=== PATIENT | male | born 1965 | race African-American/Black ===

== ENCOUNTER 2019-08-29 17:18 | Inpatient (IN) | payer MEDICARE ==
[~2019-08-29] VITALS: Ht 167.6 cm; Wt 62.7 kg
[2019-08-29] MEDS ORDERED: NORV100T PO (17:33)
[2019-08-29] MEDS ORDERED: METF10004 PO (17:33)
[2019-08-29] MEDS ORDERED: LAMI1TAB PO (17:33)
[2019-08-29] MEDS ORDERED: VALS1TAB66 PO (17:33)
[2019-08-29 17:43] LABS: BASO % 0.3 % (0.0-1.0); EOS # 0.1 10^3/uL (0.0-0.5); EOS % 1.7 % (0.0-3.0); HEMATOCRIT 37.1 % (42.0-52.0); HEMOGLOBIN 13.2 g/dl (13.5-17.5); LYMPH # 2.2 10^3/uL (1.5-5.0); LYMPH % 38.4 % (24.0-44.0); MEAN CORPUSCULAR HEMOGLOBIN 40.2 pg (27.0-33.0); MEAN CORPUSCULAR HGB CONC 35.6 g/dl (32.0-36.5); MEAN CORPUSCULAR VOLUME 113.1 fl (80.0-96.0); MONO # 0.5 10^3/uL (0.0-0.8); MONO % 7.8 % (0.0-5.0); NEUTROPHILS % 51.6 % (36.0-66.0); PLATELET COUNT, AUTOMATED 169 10^3/uL (150-450); RED BLOOD COUNT 3.28 10^6/uL (4.30-6.10); WHITE BLOOD COUNT 5.8 10^3/uL (4.0-10.0)
[2019-08-29] MEDS ORDERED: NITROGLYCERIN 0.4 MG SUBL TABLET As Ordered ONE (17:54)
[2019-08-29] MEDS ORDERED: ASPIRIN 81 MG CHEW TABLET PO ONE (18:00)
[2019-08-29] MEDS: NITROGLYCERIN 0.4 MG SUBL TABLET SL PRN ×3 (18:01→18:31)
--- NOTE | 2019-08-29 18:11 | REP ---
Clinical: Chest pain. Comparison: None. Findings: Subtle blunting to the left costophrenic angle may represent small pleural reaction. No focal consolidation. No pneumothorax. Mediastinum and cardiac silhouette normal. Impression: Subtle blunting to the left costophrenic angle may represent small pleural reaction. Electronically Signed by Christopher Coon MD 08/29/2019 06:03 P
[2019-08-29 18:18] LABS: BLOOD UREA NITROGEN 12 MG/DL (7-18); CALCIUM LEVEL 8.6 MG/DL (8.5-10.1); CARBON DIOXIDE LEVEL 32 MEQ/L (21-32); CHLORIDE LEVEL 108 MEQ/L (98-107); CK-MB VALUE MASS 2.2 NG/ML (<3.6); CPK CREATINE PHOSPHOKINASE 130 U/L (39-308); CREATININE FOR GFR 0.94 MG/DL (0.70-1.30); GLOMERULAR FILTRATION RATE > 60.0 (>56); GLUCOSE, FASTING 91 MG/DL (70-100); MB/CK RELATIVE INDEX 1.69 (< OR =4); POTASSIUM SERUM 3.8 MEQ/L (3.5-5.1); SODIUM LEVEL 142 MEQ/L (136-145); TROPONIN I < 0.02 NG/ML (< 0.10)
[2019-08-29] MEDS ORDERED: ACETAMINOPHEN TAB 650MG DOSE (2X325MG) PO ONE (18:30)
[2019-08-29] MEDS ORDERED: ISOVUE-370 76% 100ML VIAL (Q9967) As Ordered ONE (18:45)
[2019-08-29 18:55] LABS: ALBUMIN 3.4 GM/DL (3.2-5.2); ALT/SGPT 38 U/L (12-78); BILIRUBIN,DIRECT 0.1 MG/DL (0.0-0.2); BILIRUBIN,TOTAL 0.2 MG/DL (0.2-1.0); LIPASE 169 U/L (73-393); TOTAL PROTEIN 6.6 GM/DL (6.4-8.2)
--- NOTE | 2019-08-29 19:49 | REPVR ---
PROCEDURE INFORMATION: Exam: CT Angiography Chest With Contrast Exam date and time: 08/29/2019 6:49 PM Age: 54 years old Clinical indication: Other: Pleuritic chest pain TECHNIQUE: Imaging protocol: Computed tomographic angiography of the chest with intravenous contrast. 3D rendering: MIP and/or 3D reconstructed images were created by the technologist. Radiation optimization: All CT scans at this facility use at least one of these dose optimization techniques: automated exposure control; mA and/or kV adjustment per patient size (includes targeted exams where dose is matched to clinical indication); or iterative reconstruction. Contrast material: ISOVUE 370; Contrast volume: 75 ml; Contrast route: IV; COMPARISON: CR PORTABLE CHEST X-RAY 08/29/2019 5:43 PM FINDINGS: Pulmonary arteries: No focal pulmonary artery filling defect to suggest acute pulmonary embolus. Aorta: No thoracic aortic aneurysm or dissection. Lungs: Pulmonary vascular/interstitial pattern does not suggest active pulmonary edema. No suspicious lung mass or air space process. No central endobronchial lesion. Mild bilateral apical bullous changes are present in the lungs. Pleural space: No pleural effusion or pneumothorax. Heart: No overt cardiac enlargement or abnormal volume of pericardial fluid. Lymph nodes: No enlarged mediastinal lymph nodes. Bones/joints: No acute osseous abnormality. Chronic AVN changes of the humeral heads. Other findings: Limited visualization of upper abdomen shows no concerning finding. IMPRESSION: 1. No evidence of acute pulmonary embolus. 2. No other acute or concerning focal intrathoracic abnormality. 3. Chronic bilateral humeral head AVN. Electronically signed by: Guanaco Asher On 08/29/2019 19:48:53 PM
--- NOTE | 2019-08-29 20:34 | ECGEPIP ---
[facility] - ED Test Date: 2019-08-29 Pat Name: WEST FOX Department: Room: - Gender: Male Juvenile Court Judge: marina brandt : 1965 Requested By: GRETCHEN Silva Order Number: [id number] Reading MD: Alexandria Lamas Measurements Intervals Wade Rate: 67 P: 74 [place]: 133 QRS: 18 QRSD: 88 T: 36 QT: 370 QTc: 392 Interpretive Statements SINUS RHYTHM NONSPECIFIC T-WAVE ABNORMALITY DELAYED R PROGRESSION NO PRIOR Electronically Signed on 08-29-2019 20:34:02 EST by Alexandria Lamas
[2019-08-29] MEDS ORDERED: LABETALOL HCL 100 MG/20 ML VIAL IV STA (21:12)
[2019-08-29] MEDS ORDERED: GLUCAGON FOR INJ 1 MG VIAL (J1610) SC PRN (22:00)
[2019-08-29] MEDS ORDERED: GLUCOSE 4 GM CHEW TABLET PO PRN (22:00)
[2019-08-29] MEDS ORDERED: hydrALAZINE INJ 20 MG/ML VIAL IV PRN (22:00)
[2019-08-29] MEDS ORDERED: DEXTROSE 50% 50 ML SYRINGE IV PRN (22:00)
[2019-08-29] MEDS ORDERED: atenoloL 50 MG TAB PO ONE (22:00)
[2019-08-29] MEDS ORDERED: VALSARTAN 80 MG TAB (DIOVAN) PO ONE (22:00)
[2019-08-29] MEDS: NITROGLYCERIN 2% OINT 1 GM *U/D* PKT TOP SCH (22:00)
[2019-08-29] MEDS: HumaLOG INSULIN (NovoLOG) PER UNIT SC SCH (22:49)
[2019-08-29 23:03] VITALS: BP 179/79
[2019-08-29 23:37] VITALS: BP 194/92
--- NOTE | 2019-08-29 23:59 | REPVR ---
PROCEDURE INFORMATION: Exam: CT Head Without Contrast Exam date and time: 08/29/2019 10:57 PM Age: 54 years old Clinical indication: Pain; Headache not specified; Additional info: Headache HTN urgency R/O ich TECHNIQUE: Imaging protocol: Computed tomography of the head without contrast. Radiation optimization: All CT scans at this facility use at least one of these dose optimization techniques: automated exposure control; mA and/or kV adjustment per patient size (includes targeted exams where dose is matched to clinical indication); or iterative reconstruction. COMPARISON: No relevant prior studies available. FINDINGS: Brain: Moderate volume loss. No acute intracranial hemorrhage, midline shift or mass effect. Mild decreased attenuation of the supratentorial white matter is likely secondary to chronic microvascular ischemia. Ventricles: No hydrocephalus. Bones/joints: Unremarkable. No acute fracture. Sinuses: Mild paranasal sinus disease. Mastoid air cells: Visualized mastoid air cells are well aerated. Soft tissues: Unremarkable. IMPRESSION: No acute intracranial abnormality. Electronically signed by: Hood Bhatt On 08/29/2019 23:59:17 PM
[2019-08-30] VITALS (13 sets, daily range): BP systolic 139–198; BP diastolic 67–88
--- NOTE | 2019-08-30 00:24 | HPE ---
DATE OF ADMISSION: 08/29/2019 CHIEF COMPLAINT: Chest pain. Headache. HISTORY OF PRESENTING ILLNESS: This is a 54-year-old male with a history of HIV, diagnosed in the , coronary artery disease, myocardial infarction (MD), CVA, was in his usual state of health until this morning at 5:00 a.m. when he woke up with complaints of dull substernal chest pain and heart racing. The patient stayed in bed and tried to sleep it off, did not take any nitroglycerin or aspirin. He had recently moved here from [place] to live with his daughter and his son-in-law because his was "stressing me out." The patient's atenolol, which he had taken for years, was recently changed to Valsartan by his new primary care physician, Dr. Molina, in [place], who had seen him once. The patient then complained of some shortness of breath without diaphoresis. No nausea or vomiting. Chest pain lasted throughout the day today. Accompanied with a throbbing headache in the forehead. No Tylenol or Advil taken at home. He then presented to the emergency room around 4:00 p.m. when his daughter returned from going to the dentist, and he was found to be in hypertensive urgency with presenting blood pressure of 215/98. CT chest to rule out dissection showed no focal intrathoracic abnormality. EKG had no acute ST-T wave changes. The patient had labetalol given 10 mg intravenously with blood pressure decreasing to 163/89. The patient has been compliant with his medications,. The patient otherwise denies any cough, paroxysmal nocturnal dyspnea (PND), orthopnea. No history of heart failure or kidney disease due to hypertension. The patient denies any visual changes, diplopia, blurred vision, double vision. No nausea or vomiting. PAST MEDICAL HISTORY: HIV diagnosed in , viral load undetectable. CVA July of 2019. Coronary artery disease. MD. Hypertension. 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 Diabetes. PAST SURGICAL HISTORY: Bilateral ORIF due to osteonecrosis of the hips from chronic steroid use. Right hip replaced at [facility] 9 years ago. Left hip replaced in [place] 6 years ago. SOCIAL HISTORY: The patient previously worked as a cook, had spent time in correction. Patient used to smoke cigarettes, stopped 2 years ago. Smoked marijuana, quit 5 months ago. No alcohol use. Previously had heavy alcohol abuse. Currently lives with his daughter in [place], Malika Ozuna, who is the healthcare proxy. FULL CODE. HOME MEDICATIONS: - metformin 500 mg daily - lamivudine-zidovudine one tablet twice a day - Norvir 100 mg daily - valsartan 80 mg daily ALLERGIES: To TRAMADOL and TRAZODONE. REVIEW OF SYSTEMS: Per history of the present illness, 12-point system otherwise negative. PHYSICAL EXAM: Temperature 98.1, pulse 63, respiratory rate 18, blood pressure 216/93, 100% on room air. Generally, patient is awake, alert, oriented times three. Anicteric sclerae, no jaundice. No jugular venous distention (JVD). No thyromegaly. No cervical lymphadenopathy. No tonsillar exudate. Lungs are clear to auscultation. No wheezing, rales or rhonchi. Heart: S1, S2, sinus rhythm. Abdomen is soft, nontender, nondistended. Positive bowel sounds. Extremities: No cyanosis, clubbing or pitting edema. Postsurgical changes bilateral hips. Bilateral upper and lower extremities 5/5 motor strength. No paresthesias. No dysmetria on ujeqqw-[id number] testing. Speech is fluent, tongue is midline. No pronator drift. Negative Babinski bilaterally. EKG 08/29/2019: Sinus rhythm, ventricular rate 67, nonspecific T-wave abnormality, delayed R progression. White count 5.8, hemoglobin 13, hematocrit 37, platelet count 169. Sodium 142, potassium 3.8, chloride 108, bicarbonate 32, BUN 12, creatinine 0.94, glucose of 91, calcium 8.6, total bilirubin 0.2, direct bilirubin 0.1, AST 21, ALT 38, alkaline phosphatase 79, total CK 130, MB fraction 2.2, relative index 1.69, troponin less than 0.02, total protein 6.6, albumin 3.4, lipase 169. IMAGING STUDIES: Chest x-ray: Subtle blunting of the left costophrenic angle may represent small pleural reaction. No pneumothorax. Mediastinum and cardiac silhouette are normal. CT angio 08/29/2019: No evidence of acute pulmonary embolism. No other acute or concerning focal intrathoracic abnormality. Chronic bilateral humeral head avascular necrosis. Multiple apical bullous changes are present in the lungs. ASSESSMENT AND PLAN: A 54-year-old male with a history of coronary artery disease, myocardial infarction, CVA, HIV diagnosed in the , with undetectable viral load per the patient, recently moved to the [facility] to live with his daughter and son-in-law, presented with acute onset of headache, which was described as throbbing, chest pain described as dull and squeezing starting at 5:00 a.m. and palpitations. The patient was found to be in hypertensive urgency. CT of the chest was negative for dissection or pulmonary embolism. EKG: No acute coronary syndrome. Troponins unremarkable. The patient will be admitted for the following issues: 1. Hypertensive urgency. The patient's resting heart rate is 61. He has been given atenolol 100 mg times one. He is currently on valsartan 80 mg daily, nitroglycerin topically every 4 hours, hydralazine IV every 6 hours, telemetry monitoring. CT of the head pending to evaluate for intracranial hemorrhage due to hypertensive urgency, complaints of headache. No focal neurologic findings on physical examination. 2. HIV. Check CD4 count, viral load in the morning. Continue home medications, Norvir and lamivudine-zidovudine. Outpatient followup with infectious disease specialist, Dr. Marielle Clemente. Primary care physician appointment, per the patient, is scheduled for September 12, 2019, with [facility]. 3. Type 2 diabetes. Check A1c. Discontinue metformin in light of recent contrast given today for CT chest. Insulin sliding scale. Check A1c and lipid panel. 4. History of CVA. Obtain records from primary care physician in [place]. check CT head r/o ICH with c/o headache and htn urgency. check lipid panel in AM. 5. History of polysubstance abuse. quit ETOH, cigarette use, and marijuana use. Deep vein thrombosis (DVT) prophylaxis. Compression stockings. MTDD
[2019-08-30 01:32] LABS: CK-MB VALUE MASS 2.1 NG/ML (<3.6); CPK CREATINE PHOSPHOKINASE 98 U/L (39-308); MB/CK RELATIVE INDEX 2.14 (< OR =4); TROPONIN I < 0.02 NG/ML (< 0.10)
[2019-08-30] MEDS ORDERED: hydrALAZINE INJ 20 MG/ML VIAL IV PRN (01:45)
[2019-08-30] MEDS: NITROGLYCERIN 2% OINT 1 GM *U/D* PKT TOP SCH ×7 (02:13→21:05)
[2019-08-30] MEDS ORDERED: FLUBLOK(EGG FREE)(QUAD)INFLUENZA VACC 0.5ML SYRINGE (90682)18YRS&OLDER IM SCH (02:30)
[2019-08-30] MEDS ORDERED: amLODIPine 10 MG TAB PO ONE (04:30)
[2019-08-30 05:19] LABS: BASO % 0.3 % (0.0-1.0); EOS # 0.1 10^3/uL (0.0-0.5); EOS % 1.7 % (0.0-3.0); HEMATOCRIT 35.8 % (42.0-52.0); HEMOGLOBIN 12.6 g/dl (13.5-17.5); LYMPH # 1.9 10^3/uL (1.5-5.0); LYMPH % 30.6 % (24.0-44.0); MEAN CORPUSCULAR HEMOGLOBIN 39.4 pg (27.0-33.0); MEAN CORPUSCULAR HGB CONC 35.2 g/dl (32.0-36.5); MEAN CORPUSCULAR VOLUME 111.9 fl (80.0-96.0); MONO # 0.5 10^3/uL (0.0-0.8); MONO % 7.6 % (0.0-5.0); NEUTROPHILS # 3.8 10^3/uL (1.5-8.5); NEUTROPHILS % 59.6 % (36.0-66.0); PLATELET COUNT, AUTOMATED 155 10^3/uL (150-450); WHITE BLOOD COUNT 6.3 10^3/uL (4.0-10.0)
[2019-08-30 05:31] LABS: BLOOD UREA NITROGEN 13 MG/DL (7-18); CALCIUM LEVEL 8.8 MG/DL (8.5-10.1); CARBON DIOXIDE LEVEL 27 MEQ/L (21-32); CHLORIDE LEVEL 109 MEQ/L (98-107); CREATININE FOR GFR 0.78 MG/DL (0.70-1.30); GLOMERULAR FILTRATION RATE > 60.0 (>56); GLUCOSE, FASTING 79 MG/DL (70-100); POTASSIUM SERUM 3.8 MEQ/L (3.5-5.1); SODIUM LEVEL 141 MEQ/L (136-145)
[2019-08-30 05:37] LABS: HEMOGLOBIN A1c 4.7 %
[2019-08-30 05:43] LABS: CHOLESTEROL LEVEL 149 MG/DL (<200); CHOLESTEROL RISK RATIO 2.614 (<5); CK-MB VALUE MASS 1.7 NG/ML (<3.6); CPK CREATINE PHOSPHOKINASE 105 U/L (39-308); HDL CHOLESTEROL 57 MG/DL (>40); LDL CHOLESTEROL 69 MG/DL (<100); MB/CK RELATIVE INDEX 1.62 (< OR =4); NON-HDL-C 92 MG/DL; TRIGLYCERIDES LEVEL 113 MG/DL (<150); TROPONIN I < 0.02 NG/ML (< 0.10)
[2019-08-30] MEDS: HumaLOG INSULIN (NovoLOG) PER UNIT SC SCH ×4 (07:04→20:59)
[2019-08-30] MEDS ORDERED: VALSARTAN 80 MG TAB (DIOVAN) PO SCH (09:00)
[2019-08-30] MEDS: atenoloL 50 MG TAB PO SCH (09:49)
[2019-08-30] MEDS: VALSARTAN 80 MG TAB (DIOVAN) PO SCH (09:50)
[2019-08-30] MEDS: RITONAVIR 100 MG PO SCH (14:46)
[2019-08-30] MEDS: ZIDOVUDINE PO SCH ×2 (14:47→20:56)
[2019-08-30] MEDS: LAMIVUDINE PO SCH ×2 (14:47→20:56)
[2019-08-31] VITALS: BP 136/63
[2019-08-31] MEDS: NITROGLYCERIN 2% OINT 1 GM *U/D* PKT TOP SCH ×3 (02:00→10:37)
[2019-08-31 03:55] VITALS: BP 121/60
[2019-08-31 04:53] LABS: BASO % 0.6 % (0.0-1.0); EOS # 0.2 10^3/uL (0.0-0.5); EOS % 2.7 % (0.0-3.0); HEMOGLOBIN 12.3 g/dl (13.5-17.5); LYMPH # 2.2 10^3/uL (1.5-5.0); LYMPH % 34.8 % (24.0-44.0); MEAN CORPUSCULAR HEMOGLOBIN 39.7 pg (27.0-33.0); MEAN CORPUSCULAR HGB CONC 35.1 g/dl (32.0-36.5); MEAN CORPUSCULAR VOLUME 112.9 fl (80.0-96.0); MONO # 0.6 10^3/uL (0.0-0.8); MONO % 8.9 % (0.0-5.0); NEUTROPHILS # 3.3 10^3/uL (1.5-8.5); NEUTROPHILS % 52.7 % (36.0-66.0); PLATELET COUNT, AUTOMATED 161 10^3/uL (150-450); WHITE BLOOD COUNT 6.2 10^3/uL (4.0-10.0)
[2019-08-31 05:13] LABS: BLOOD UREA NITROGEN 18 MG/DL (7-18); CALCIUM LEVEL 8.2 MG/DL (8.5-10.1); CARBON DIOXIDE LEVEL 27 MEQ/L (21-32); CHLORIDE LEVEL 112 MEQ/L (98-107); CREATININE FOR GFR 0.94 MG/DL (0.70-1.30); GLOMERULAR FILTRATION RATE > 60.0 (>56); GLUCOSE, FASTING 105 MG/DL (70-100); SODIUM LEVEL 144 MEQ/L (136-145)
[2019-08-31 06:29] VITALS: BP 175/84
[2019-08-31 06:44] VITALS: BP 138/75
[2019-08-31 07:45] VITALS: BP 154/76
[2019-08-31] MEDS: HumaLOG INSULIN (NovoLOG) PER UNIT SC SCH (08:39)
[2019-08-31] MEDS: VALSARTAN 80 MG TAB (DIOVAN) PO SCH (08:40)
[2019-08-31] MEDS: atenoloL 50 MG TAB PO SCH (08:40)
[2019-08-31] MEDS: LAMIVUDINE PO SCH (08:41)
[2019-08-31] MEDS: ZIDOVUDINE PO SCH (08:41)
[2019-08-31] MEDS: RITONAVIR 100 MG PO SCH (08:42)
[2019-08-31] MEDS ORDERED: amLODIPine 10 MG TAB PO SCH (09:00)
--- NOTE | 2019-08-31 09:45 | DS.PDOC ---
Discharge Summary General Date of Admission Aug 29, 2019 at 21:53 Date of Discharge 08/31/19 Discharge Summary PROCEDURES PERFORMED DURING STAY: none ADMITTING DIAGNOSES: 1. hypertensive urgency DISCHARGE DIAGNOSES: 1. hypertensive urgency COMPLICATIONS/CHIEF COMPLAINT: Hypertensive Urgency. HISTORY OF PRESENT ILLNESS: Please refer to dated 08/29/19 for complete HPI. HOSPITAL COURSE: Patient was admitted and treated for the following conditions: 1. hypertensive urgency - admitted to MICU. - started on valsartan, atenolol, amlodipine, hydralazine IV. - patient blood pressure improved significantly on PO medication. - patient downgraded to PCU, is now stable for discharge to home. - patient will be discharged on atenolol, amlodipine, valsartan. - PCP follow up at [facility] on 09/12/19. 2. HIV - patient continued on norvir, lamivudine-zidovudine. - outpatient follow up with infectious disease, Marielle Clemente. - PCP follow up with [facility] scheduled for 09/12/19. 3. DM2 - continue metformin. DISCHARGE MEDICATIONS: Please see below. ALLERGIES: Please see below. PHYSICAL EXAMINATION ON DISCHARGE: VITAL SIGNS: Please see below. GENERAL: AAO x 3, NAD. HEENT: NCAT, anicteric sclera, PERRLA/EOMI NECK: supple, no JVD, no thyromegaly CARDIOVASCULAR EXAMINATION: NS1S2, regular, no murmurs/rubs RESPIRATORY EXAMINATION: CTA b/l, no wheezing, rales, rhonchi. ABDOMINAL EXAMINATION: NT/ND, positive bowel sounds, no masses EXTREMITIES: no cyanosis, clubbing, edema SKIN: warm, no rashes, NEUROLOGICAL EXAMINATION: AAO x 3, no motor/sensory deficits, PSYCHIATRIC EXAMINATION: calm, cooperative, normal affectis. LABORATORY DATA: Please see below. IMAGING: Chest x-ray: Subtle blunting of the left costophrenic angle may represent small pleural reaction. No pneumothorax. Mediastinum and cardiac silhouette are normal. CT angio 08/29/2019: No evidence of acute pulmonary embolism. No other acute or concerning focal intrathoracic abnormality. Chronic bilateral humeral head avascular necrosis. Multiple apical bullous changes are present in the lungs. PROGNOSIS: good ACTIVITY: [As tolerated]. DIET: low sodium DISCHARGE PLAN: discharge to home DISPOSITION: home DISCHARGE INSTRUCTIONS: 1. PCP follow up at [facility] on 09/12/19 2. Outpatient follow up with infectious disease, Marielle Clemente ITEMS TO FOLLOWUP ON ON OUTPATIENT: 1. none DISCHARGE CONDITION: [Stable]. TIME SPENT ON DISCHARGE: Greater than 30 minutes. Vital Signs/I&Os Vital Signs Date Time Temp Pulse Resp B/P (MAP) Pulse Ox O2 Delivery O2 Flow Rate FiO2 08/31/19 08:40 154/76 08/31/19 06:44 56 08/31/19 06:29 17 99 Room Air 08/31/19 03:55 98.2 I&O- Last 24 Hours up to 6 AM 08/31/19 05:59 Intake Total 860 ml Output Total 1025 ml Balance -165 ml Laboratory Data Labs 24H Laboratory Tests 2 08/30/19 11:52: Bedside Glucose (Misc Panel) 182H 08/30/19 16:38: Bedside Glucose (Misc Panel) 100 08/30/19 20:58: Bedside Glucose (Misc Panel) 147H 08/31/19 04:27: Immature Granulocyte % (Auto) 0.3, Neutrophils (%) (Auto) 52.7, Lymphocytes (%) (Auto) 34.8, Monocytes (%) (Auto) 8.9H, Eosinophils (%) (Auto) 2.7, Basophils (%) (Auto) 0.6, Neutrophils # (Auto) 3.3, Lymphocytes # (Auto) 2.2, Monocytes # (Auto) 0.6, Eosinophils # (Auto) 0.2, Basophils # (Auto) 0.0, Nucleated Red Blood Cells % (auto) 0.0, Anion Gap 5L, Glomerular Filtration Rate > 60.0, Calcium Level 8.2L CBC/BMP Laboratory Tests 08/31/19 04:27 FSBS Laboratory Tests Test 08/30/19 11:52 08/30/19 16:38 08/30/19 20:58 Range/Units Bedside Glucose (Misc Panel) 182 100 147 70-105 MG/DL Discharge Medications Scheduled Lamivudine/Zidovudine (Lamivudine-Zidovudine Tablet) 1 Each Tablet, 1 TAB PO BID, (Reported) Metformin HCl (Metformin HCl) 1,000 Mg Tablet, 500 MG PO DAILY, (Reported) Ritonavir (Norvir) 100 Mg Tablet, 100 MG PO DAILY, (Reported) Valsartan (Valsartan) 80 Mg Tablet, 80 MG PO DAILY, (Reported) Allergies Coded Allergies: tramadol (Verified Allergy, Intermediate, Hives, 08/29/19) trazodone (Verified Adverse Reaction, Severe, Priaprism, 08/29/19) SYLVIE ELISE MD Aug 31, 2019 09:45
[2019-08-31] MEDS ORDERED: AMLO10TA5 PO (10:07)
[2019-08-31] MEDS ORDERED: ATEN50TA2 PO (10:07)
--- NOTE | 2019-08-31 10:26 | ECHO ---
DATE OF PROCEDURE: 08/30/2019 AGE: 54 REFERRING PROVIDER: Dr. Burt REASON FOR STUDY: Chest pain. LOCATION: Room 3206 2-D MEASUREMENTS: IVS 1.1 cm LV 3.5 cm LVPW 1.1 cm LA 2.9 cm Aorta 2.6 cm IVC 1.3 cm DOPPLER MEASUREMENTS: Peak velocity across the aortic valve 1.9 meters per second Peak velocity across the LVOT 1.2 meters per second Mitral E 0.85, mitral A 0.9 with a ratio of 0.9. 2-D COMMENTS: 1. Normal left ventricular size, wall thickness, and normal global left ventricular systolic function. The estimated ventricular systolic ejection fraction is 65-70%. 2. Normal left atrium. Normal right atrium and right ventricle. The atrial septum appeared to be normal without evidence of defect or shunt. 3. Trace pericardial effusion was noted, no evidence of cardiac tamponade. 4. Normal aortic root. 5. Mildly calcified aortic valve with minimally restricted leaflet motion. Mildly calcified mitral annulus with normal anterior mitral leaflet motion. Normal tricuspid valve and pulmonic valve. The proximal pulmonary artery branches were not well visualized. 6. The inferior vena cava was normal in size, central venous pressure is most likely normal. Doppler: It detects trace aortic radiation, trace mitral regurgitation. Abnormal relaxation pattern was noted across the mitral valve leaflets, as well as the mitral annulus consistent with features of grade 1 left ventricular diastolic dysfunction. IMPRESSION: 1. Normal global left ventricular systolic function with a hyperdynamic left ventricle. There are some features of left ventricular diastolic dysfunction manifested by abnormal relaxation, grade 1. 2. Aortic valve sclerosis with trace aortic regurgitation and trivial aortic stenosis. 3. Mitral annulus calcification with trace mitral regurgitation. 4. Trace pericardial effusion, no evidence of cardiac tamponade. [facility]
[2019-08-31 10:37] VITALS: BP 156/76
--- NOTE | 2019-08-31 21:39 | ECGEPIP ---
[facility] Test Date: 2019-08-30 Pat Name: WEST FOX JR Department: Room: [place] [address] Gender: Male Neurology Epilepsy Physician: GABRIEL : 1965 Requested By: SHELBIE Góemz Order Number: [id number] Reading MD: Darwin Johnson Measurements Intervals Atkins Rate: 64 P: 70 NE: 151 QRS: 12 QRSD: 86 T: 29 QT: 402 QTc: 418 Interpretive Statements SINUS RHYTHM Within normal limits. Electronically Signed on 08-31-2019 21:38:47 EST by Darwin Johnson
[2019-09-02 00:07] LABS: HIV-1 RNA PCR QUANT 2 LC550285 <20 copies/mL (.)
== END 2019-08-31 12:33 | disposition home or self-care (01) | DRG 305 ==
LOC: M ED 17:18 → M ED INP 21:53 → ENRESERV 22:14 → M ICU 22:56
PROVIDERS: ADMIT General Practice; ATTEND Internal Medicine
DX: I16.0 Hypertensive urgency (principal); Z21 Asymptomatic human immunodeficiency virus [HIV] infection status; I25.10 Atherosclerotic heart disease of native coronary artery without angina pectoris; I25.2 Old myocardial infarction; E11.9 Type 2 diabetes mellitus without complications; I10 Essential (primary) hypertension; Z96.643 Presence of artificial hip joint, bilateral; Z87.891 Personal history of nicotine dependence; Z86.73 Personal history of transient ischemic attack (TIA), and cerebral infarction without residual deficits; Z79.84 Long term (current) use of oral hypoglycemic drugs; Z79.899 Other long term (current) drug therapy; Z88.5 Allergy status to narcotic agent; Z88.8 Allergy status to other drugs, medicaments and biological substances

== ENCOUNTER → 2019-09-04 | Outpatient (REF) | payer MEDICARE ==
[~2019-09-04] MED LIST: AMLO10TA5 PO; ATEN50TA2 PO; LAMI1TAB PO; METF10004 PO; NORV100T PO; VALS1TAB66 PO
[2019-09-04 18:54] LABS: ALBUMIN 3.9 GM/DL (3.2-5.2); ALT/SGPT 35 U/L (12-78); BILIRUBIN,TOTAL 2.7 MG/DL (0.2-1.0); BLOOD UREA NITROGEN 12 MG/DL (7-18); CALCIUM LEVEL 9.3 MG/DL (8.5-10.1); CARBON DIOXIDE LEVEL 31 MEQ/L (21-32); CHLORIDE LEVEL 106 MEQ/L (98-107); CHOLESTEROL LEVEL 214 MG/DL (<200); CHOLESTEROL RISK RATIO 3.194 (<5); CREATININE FOR GFR 1.03 MG/DL (0.70-1.30); GLOMERULAR FILTRATION RATE > 60.0 (>56); GLUCOSE, FASTING 77 MG/DL (70-100); HDL CHOLESTEROL 67 MG/DL (>40); LDL CHOLESTEROL 118 MG/DL (<100); NON-HDL-C 147 MG/DL; POTASSIUM SERUM 4.8 MEQ/L (3.5-5.1); SODIUM LEVEL 140 MEQ/L (136-145); TOTAL PROTEIN 7.4 GM/DL (6.4-8.2); TRIGLYCERIDES LEVEL 147 MG/DL (<150)
[2019-09-04 18:55] LABS: FREE T4 0.92 NG/DL (0.76-1.46)
[2019-09-04 19:34] LABS: HEMOGLOBIN A1c 4.7 %
== END ==
LOC: M LAB REF 16:37
PROVIDERS: ATTEND Nurse Practitioner Family
DX: Z13.9 Encounter for screening, unspecified (principal); I10 Essential (primary) hypertension; E11.69 Type 2 diabetes mellitus with other specified complication

== ENCOUNTER 2019-09-25 12:27 | Inpatient (IN) | payer MEDICARE ==
[~2019-09-25] VITALS: Ht 167.6 cm; Wt 64.1 kg
[2019-09-25 13:12] LABS: HEMATOCRIT 40.6 % (42.0-52.0); HEMOGLOBIN 14.4 g/dl (13.5-17.5); MEAN CORPUSCULAR HEMOGLOBIN 39.1 pg (27.0-33.0); MEAN CORPUSCULAR HGB CONC 35.5 g/dl (32.0-36.5); MEAN CORPUSCULAR VOLUME 110.3 fl (80.0-96.0); PLATELET COUNT, AUTOMATED 169 10^3/uL (150-450); RED BLOOD COUNT 3.68 10^6/uL (4.30-6.10); WHITE BLOOD COUNT 5.6 10^3/uL (4.0-10.0)
[2019-09-25 13:32] LABS: AMPHETAMINES LEVEL URINE NEGATIVE (NEGATIVE); BARBITURATES URINE NEGATIVE (NEGATIVE); BENZODIAZEPINES URINE NEGATIVE (NEGATIVE); CANNABINOIDS URINE NEGATIVE (NEGATIVE); COCAINE METABOLITE URINE NEGATIVE (NEGATIVE); METHADONE URINE NEGATIVE (NEGATIVE); OPIATES URINE NEGATIVE (NEGATIVE); PHENCYCLIDINE URINE NEGATIVE (NEGATIVE)
[2019-09-25 13:41] LABS: ACETAMINOPHEN LEVEL < 2.0 UG/ML (10.0-30.0); ALBUMIN 3.9 GM/DL (3.2-5.2); ALT/SGPT 61 U/L (12-78); BILIRUBIN,DIRECT 0.2 MG/DL (0.0-0.2); BILIRUBIN,TOTAL 0.7 MG/DL (0.2-1.0); BLOOD UREA NITROGEN 26 MG/DL (7-18); CALCIUM LEVEL 9.4 MG/DL (8.5-10.1); CARBON DIOXIDE LEVEL 27 MEQ/L (21-32); CHLORIDE LEVEL 108 MEQ/L (98-107); CREATININE FOR GFR 1.45 MG/DL (0.70-1.30); ETHYL ALCOHOL (ETHANOL) < 0.003 % (0.000-0.010); GLOMERULAR FILTRATION RATE > 60.0 (>56); GLUCOSE, FASTING 93 MG/DL (70-100); POTASSIUM SERUM 4.1 MEQ/L (3.5-5.1); SALICYLATE LEVEL < 1.7 MG/DL (5.0-30.0); SODIUM LEVEL 140 MEQ/L (136-145); TOTAL PROTEIN 7.7 GM/DL (6.4-8.2)
[2019-09-25] MEDS ORDERED: [UNRECOGNIZED DRUG - CODE] PO (14:43)
[2019-09-25] MEDS ORDERED: ATEN100T PO (14:43)
[2019-09-25] MEDS ORDERED: AMLO10TA5 PO (14:43)
[2019-09-25] MEDS ORDERED: ONE1TAB2 PO (14:44)
[2019-09-25] MEDS ORDERED: MOM 30ML SUSPENSION UDC PO PRN (17:00)
[2019-09-25] MEDS ORDERED: traZODone 50 MG TAB PO PRN (17:00)
[2019-09-25] MEDS ORDERED: MAALOX 30 ML SUSP *UDC PO PRN (17:00)
[2019-09-25] MEDS ORDERED: ACETAMINOPHEN TAB 650MG DOSE (2X325MG) PO PRN (17:00)
[2019-09-26 06:22] VITALS: BP 142/78
[2019-09-26] MEDS ORDERED: metFORMIN (GLUCOPHAGE) 1000 MG TABLET PO SCH (08:00)
[2019-09-26] MEDS ORDERED: atenoloL 50 MG TAB PO SCH (09:00)
[2019-09-26] MEDS ORDERED: amLODIPine 10 MG TAB PO SCH (09:00)
[2019-09-26] MEDS: MULTIVITAMINS/MINERALS THERAP 1 TAB PO SCH (09:27)
[2019-09-26] MEDS: SERTRALINE HCL 50 MG TAB PO SCH (09:27)
--- NOTE | 2019-09-26 09:41 | MHHPEPDOC ---
[facility] History & Physical History and Physical DATE OF ADMISSION: Sep 25, 2019 at 16:48 LEGAL STATUS AT ADMISSION: . CHIEF COMPLAINT: . HISTORY OF PRESENT ILLNESS: Patient is a 54-year-old male, who PSYCHIATRIC REVIEW OF SYSTEMS: Affective: . Anxiety: . Trauma: . Psychosis: . Personality: . PAST PSYCHIATRIC HISTORY: Prior Psychiatric Disorder: . Outpatient Treatment: . Suicidal/Self injurious: [Denies]. Psychotropic Medication History: . ALLERGIES: Please see below. FAMILY PSYCHIATRIC HISTORY: [Denies]. SOCIAL HISTORY: Early Relations/development: . Sibling order: . Paternal relationships: . Education: . Occupational: . Legal: . Marital: . Economic: . Supports: . Abuse/trauma: . SUBSTANCE ABUSE HISTORY: . PAST MEDICAL/SURGICAL HISTORY: [None]. VITAL SIGNS: Please see below. MENTAL STATUS EXAMINATION: General appearance: Patient is a -year old male, who is . Speech: . Thought processes: . Thought content: . Abstract reasoning and computation: . Description of associations: . Description of abnormal or psychotic thoughts: . Judgment: . Insight: . Orientation: . Recent and remote memory: . Attention span and concentration: . Fund of knowledge: . Mood: "." Affect: . DIAGNOSES: 1. . 2. . 3. . ASSESSMENT: PROBLEM LIST: 1. . 2. . 3. . INITIAL TREATMENT PLAN: 1. Patient was admitted on a . 2. Complete history was obtained. 3. With patients permission, family will be contacted and database will be expanded. 4. Patients medication regimen will be reviewed and changed accordingly. 5. Patient will be provided with protected environment. 6. Patient will be treated with individual, group, and milieu therapies. 7. Patient will receive supportive psych-education. 8. Discharge planning will commence immediately. 9. Outpatient follow-up treatment will be strongly recommended. 10. The initial treatment plan will focus initially on: * Depression. * Risk for suicide. * Substance abuse. ESTIMATED LENGTH OF STAY: - DAYS. TIME SPENT COUNSELING AND COORDINATING INITIAL CARE: minutes. Vital Signs Vital Signs Date Time Temp Pulse Resp B/P (MAP) Pulse Ox O2 Delivery O2 Flow Rate FiO2 09/26/19 09:28 62 09/26/19 09:27 139/71 09/26/19 08:47 Room Air 09/26/19 06:22 98.7 18 09/25/19 16:44 99 Laboratory Data 24H Labs Laboratory Tests 2 09/25/19 12:52: Urine Opiates Screen NEGATIVE, Urine Methadone Screen NEGATIVE, Urine Galina iturates Screen NEGATIVE, Urine Phencyclidine Screen NEGATIVE, Urine Amphetamines Screen NEGATIVE, Urine Benzodiazepines Screen NEGATIVE, Urine Cocaine Metabolite Screen NEGATIVE, Urine Cannabinoids Screen NEGATIVE 09/25/19 12:55: Nucleated Red Blood Cells % (auto) 0.0, Anion Gap 5L, Glomerular Filtration Rate > 60.0, Calcium Level 9.4, Total Bilirubin 0.7, Direct Bilirubin 0.2, Aspartate Amino Transf (AST/SGOT) 29, Alanine Aminotransferase (ALT/SGPT) 61, Alkaline Phosphatase 106, Total Protein 7.7, Albumin 3.9, Albumin/Globulin Ratio 1.03, Thyroid Stimulating Hormone (TSH) 3.980H, Salicylates Level < 1.7L, Acetaminophen Level < 2.0L, Ethyl Alcohol Level < 0.003 CBC/BMP Laboratory Tests 09/25/19 12:55 Medications Scheduled Amlodipine Besylate (Amlodipine Besylate) 10 Mg Tablet, 10 MG PO DAILY, (Report ed) Atazanavir Sulfate (Reyataz) 300 Mg Capsule, 300 MG PO DAILY, (Reported) Atenolol (Atenolol) 100 Mg Tablet, 100 MG PO DAILY, (Reported) Lamivudine/Zidovudine (Lamivudine-Zidovudine Tablet) 1 Each Tablet, 1 TAB PO BID, (Reported) Multivit-Minerals/FA/Lycopene (One Daily Men's Health Tablet) 1 Each Tablet, 1 TAB PO DAILY, (Reported) Ritonavir (Norvir) 100 Mg Tablet, 100 MG PO DAILY, (Reported) Scheduled PRN Metformin HCl (Metformin HCl) 1,000 Mg Tablet, 500 MG PO DAILY PRN for high blood sugar, (Reported) patient states takes prn Allergies Coded Allergies: tramadol (Verified Allergy, Intermediate, Hives, 08/29/19) trazodone (Verified Adverse Reaction, Severe, Priaprism, 08/29/19) LAKSHMI PERRIN DO Sep 26, 2019 09:41
[2019-09-26] MEDS ORDERED: metFORMIN (GLUCOPHAGE) 1000 MG TABLET PO PRN (10:45)
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
[2019-09-26] MEDS: IBUPROFEN 800 MG TAB PO PRN (12:16)
--- NOTE | 2019-09-26 12:27 | REP ---
Urinary tract sonogram: History: Elevated creatinine Comparison: No comparison study. Findings: Scanning at the level of the urinary bladder shows no abnormality. Renal cortical echogenicity pattern is normal bilaterally and contours are smooth. There is no evidence of hydronephrosis, cyst, mass, or calculus in either kidney. The right kidney measures 9.1 x 4.9 x 5.2 cm. Left renal dimensions are and 10.2 x 4.9 x 5.0 cm. Impression: Normal urinary tract sonography. Electronically Signed by Daniel Gallagher MD 09/26/2019 12:17 P
[2019-09-26 16:00] VITALS: BP 130/73
[2019-09-26 21:23] LABS: APPEARANCE, URINE CLEAR (CLEAR); BACTERIA, URINE AUTO NEGATIVE (NEGATIVE); BILIRUBIN, URINE AUTO NEGATIVE (NEGATIVE); BLOOD, URINE BLOOD NEGATIVE (NEGATIVE); COLOR, URINE YELLOW (YELLOW); GLUCOSE, URINE (UA) AUTO NEGATIVE (NEGATIVE); KETONE, URINE AUTO NEGATIVE (NEGATIVE); LEUKOCYTE ESTERASE, URINE AUTO NEGATIVE (NEGATIVE); MUCUS, URINE SMALL (NEGATIVE); NITRITE, URINE AUTO NEGATIVE (NEGATIVE); PROTEIN, URINE AUTO NEGATIVE (NEGATIVE); RBC, URINE AUTO 1 /HPF (0-3); SQUAMOUS EPITHELIAL CELL UR AU 0 /HPF (0-6); UROBILINOGEN, URINE AUTO 0.2 mg/dL (0.0-2.0); WBC, URINE AUTO 0 /HPF (0-3)
[2019-09-27] MEDS: OLANZapine ORAL DISINTEGRATING TAB 5MG PO PRN ×2 (01:58→21:04)
[2019-09-27 06:22] VITALS: BP 136/75
[2019-09-27] MEDS ORDERED: FLUBLOK(EGG FREE)(QUAD)INFLUENZA VACC 0.5ML SYRINGE (90682)18YRS&OLDER IM ONE (09:00)
[2019-09-27] MEDS: amLODIPine 10 MG TAB PO SCH (09:05)
[2019-09-27] MEDS: MULTIVITAMINS/MINERALS THERAP 1 TAB PO SCH (09:06)
[2019-09-27] MEDS: SERTRALINE HCL 50 MG TAB PO SCH (09:06)
[2019-09-27] MEDS: atenoloL 50 MG TAB PO SCH (09:07)
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
--- NOTE | 2019-09-27 13:04 | IPNPDOC ---
Text Note Date of Service The patient was seen on 09/27/19. NOTE JOSE. Renal ultrasound negative for hydronephrosis, mass, cyst or stone. UA normal. Likely secondary to dehydration in the face of worsening mental state. Push fluid/water, reassess BMP tomorrow AMENDMENT Repeat bmp is WNL Medicine will sign of at this time. Please re-consult as needed. VS,Fishbone, I+O VS, Fishbone, I+O Vital Signs Date Time Temp Pulse Resp B/P (MAP) Pulse Ox O2 Delivery O2 Flow Rate FiO2 09/27/19 09:07 60 144/70 09/27/19 07:50 Room Air 09/27/19 06:22 97.8 16 09/25/19 16:44 99 MARIAM HASSAN PA-C Sep 27, 2019 13:04
[2019-09-27 16:00] VITALS: BP 130/60
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
[2019-09-28 06:24] VITALS: BP 143/74
[2019-09-28 07:47] LABS: BLOOD UREA NITROGEN 18 MG/DL (7-18); CALCIUM LEVEL 8.8 MG/DL (8.5-10.1); CARBON DIOXIDE LEVEL 29 MEQ/L (21-32); CHLORIDE LEVEL 110 MEQ/L (98-107); CREATININE FOR GFR 1.19 MG/DL (0.70-1.30); GLOMERULAR FILTRATION RATE > 60.0 (>56); GLUCOSE, FASTING 86 MG/DL (70-100); POTASSIUM SERUM 4.1 MEQ/L (3.5-5.1); SODIUM LEVEL 143 MEQ/L (136-145)
[2019-09-28] MEDS: amLODIPine 10 MG TAB PO SCH (09:29)
[2019-09-28] MEDS: SERTRALINE HCL 50 MG TAB PO SCH (09:30)
[2019-09-28] MEDS: IBUPROFEN 800 MG TAB PO PRN (09:30)
[2019-09-28] MEDS: MULTIVITAMINS/MINERALS THERAP 1 TAB PO SCH (09:30)
[2019-09-28] MEDS: atenoloL 50 MG TAB PO SCH (09:31)
[2019-09-28 16:00] VITALS: BP 145/76
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
[2019-09-29 06:24] VITALS: BP 165/79
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
[2019-09-29 08:43] VITALS: BP 135/64
[2019-09-29] MEDS: SERTRALINE HCL 50 MG TAB PO SCH (08:43)
[2019-09-29] MEDS: atenoloL 50 MG TAB PO SCH (08:43)
[2019-09-29] MEDS: MULTIVITAMINS/MINERALS THERAP 1 TAB PO SCH (08:43)
[2019-09-29] MEDS: amLODIPine 10 MG TAB PO SCH (08:44)
[2019-09-29] MEDS ORDERED: RITONAVIR 100 MG PO SCH ×2 (09:00→21:00)
[2019-09-29] MEDS ORDERED: LAMIVUDINE PO SCH (09:00)
[2019-09-29] MEDS ORDERED: ATAZANAVIR 300 MG PO SCH (09:00)
[2019-09-29] MEDS ORDERED: ZIDOVUDINE PO SCH (09:00)
[2019-09-29 10:11] LABS: HEPATITIS B SURFACE ANTIBODY POSITIVE (POSITIVE); HEPATITIS B SURFACE ANTIGEN NEGATIVE (NEGATIVE)
--- NOTE | 2019-09-29 10:38 | MHIPNPDOC ---
[facility] Progress Note Progress Note DATE OF SERVICE: 09/29/19 HISTORY: . VITAL SIGNS: See below. NEW TEST RESULTS: . CURRENT MEDICATIONS: See below. MENTAL STATUS EXAMINATION: Patient is a -year old male, who is . Speech: Is . Language skills are . Thought processes including: . Thought content: . Abstract reasoning, and computation: . Description of associ ations: . Description of abnormal or psychotic thoughts: . Judgment: . Insight: [very limited, good, fair. poor]. Orientation: . Recent and remote memory: . Attention span and concentration: . Language: . Fund of knowledge: . Mood: . Affect: . DIAGNOSES: 1. . 2. . 3. . ASSESSMENT: MANAGEMENT PLAN: . TIME SPENT: minutes. Vital Signs Vital Signs Date Time Temp Pulse Resp B/P (MAP) Pulse Ox O2 Delivery O2 Flow Rate FiO2 09/29/19 08:44 58 09/29/19 08:43 135/64 09/29/19 06:24 97.9 16 09/28/19 08:32 Room Air 09/25/19 16:44 99 Laboratory Data 24H Labs Laboratory Tests 2 09/28/19 16:54: Bedside Glucose (Misc Panel) 164H 09/29/19 06:24: Bedside Glucose (Misc Panel) 89 09/29/19 06:27: 09/29/19 06:34: Hepatitis B Surface Antigen NEGATIVE, Hepatitis B Surface Antibody POSITIVE, Hepatitis C Antibody Index 0.0 Current Medications Current Medications Medications (Trade) Dose Ordered Sig/Rashel Route PRN Reason Start Time Stop Time Status Last Admin Dose Admin Acetaminophen (Tylenol Tab) 650 mg Q6HP PRN PO HEADACHE or DISCOMFORT 09/25/19 17:00 09/26/19 09:27 Al Hydrox/Mg Hydrox/Simethicone (Mylanta) 30 ml Q4HP PRN PO HEARTBURN/INDIGESTION 09/25/19 17:00 Amlodipine Besylate (Norvasc) 10 mg DAILY PO 09/26/19 09:00 09/26/19 11:00 DC 09/26/19 09:27 Amlodipine Besylate (Norvasc) 10 mg DAILY PO 09/27/19 09:00 09/29/19 08:44 Atenolol (Tenormin) 100 mg DAILY PO 09/26/19 09:00 09/26/19 11:00 DC 09/26/19 09:28 Atenolol (Tenormin) 100 mg DAILY PO 09/27/19 09:00 09/29/19 08:43 Home Med (Med Rec Complete!) ASDIRECTED XX 09/25/19 14:45 09/25/19 14:46 DC Ibuprofen (Advil) 800 mg Q6HP PRN PO MODERATE PAIN (PS 5-7) 09/26/19 10:45 09/28/19 09:30 Magnesium Hydroxide (Milk Of Magnesia) 30 ml DAILYPRN PRN PO CONSTIPATION 09/25/19 17:00 Metformin HCl (Glucophage) 500 mg DAILY PRN PO high blood sugar 09/26/19 10:45 Metformin HCl (Glucophage) 1,000 mg DAILY@0800 PO 09/26/19 08:00 Cancel Miscellaneous (Unresolved Patient Own Med Order) SEE LABEL COMMENTS DAILY XX 09/26/19 09:00 Multivitamins (Theragram-M) 1 tab DAILY PO 09/26/19 09:00 09/29/19 08:43 Olanzapine (ZyPREXA ZYDIS) 5 mg Q4HP PRN PO AGITATION 09/25/19 17:00 09/27/19 21:04 Patient Own Medication (Patient'S Own Med) Atazanavir 300mg CAPS... DAILY PO 09/26/19 09:00 UNV Patient Own Medication (Patient'S Own Med) Lamivudine/ Zidovudine 1,50/... BID PO 09/25/19 21:00 UNV Patient Own Medication (Patient'S Own Med) Ritonavir 100mg TAKE 1 BY MO... DAILY PO 09/26/19 09:00 UNV Sertraline HCl (Zoloft) 50 mg DAILY PO 09/26/19 09:00 09/29/19 08:43 Trazodone HCl (Desyrel) 50 mg QHSP PRN PO INSOMNIA 09/25/19 17:00 UNV Allergies Coded Allergies: tramadol (Verified Allergy, Intermediate, Hives, 08/29/19) trazodone (Verified Adverse Reaction, Severe, Priaprism, 08/29/19) LAKSHMI PERRIN DO Sep 29, 2019 10:38
--- NOTE | 2019-09-29 11:53 | MHDSPDOC ---
[facility] Discharge Summary Discharge Summary DATE OF ADMISSION: Sep 25, 2019 at 16:48 DATE OF DISCHARGE: 09/29/19 Discharge Stas Dominguez MRN: N/[id number] Date of : N/A Date of Service: 09/29/2019 Diagnoses Unspecified depressive disorder Concern for malingering versus fabrication Alcohol, tobacco, other drug use disorder, in remission History of Present Illness The patient is a 54-year-old man who recently moved to the area from [place] to live with his daughter, has a reported history of depression, however, presents after being kicked out of his daughter's home due to "not liking it there." The patient reported that otherwise he had had HIV since the 80s and had poor relationships with most of his family members. Consultants Involved Hospitalist/PCP screening Infectious disease: Due to lack of his home medications for HIV, recommended continuing once was able. Treatment and Progress On The Unit The patient was admitted to the inpatient unit and tried on sertraline 50 mg with positive results at times. The patient didn't attend groups and was generally uninterested in treatment, it became clear during his admission that he generally was malingering for housing, as he was not welcome back at his daughter's home. After some time of observation and conversion to voluntary status, I discussed with the patient about the risks of continue to stay on the inpatient unit due to the bowling virus outbreak. Patient was amenable to making a safe plan and the suicidality rapidly resolved further increasing my suspicion of malingering. He had no behavioral problems on the unit and was generally friendly Discharge Assessment 54-year-old man with likely manufactured depression versus adjustment disorder is treated with low dose SSRI. The patient at the time of discharge did not meet criteria for involuntary admission/extension due to having a normal mental status exam, fair insight into the situation, They are engaged in the discharge process, as well as being friendly and amenable in behavioral control and havent been engaging in any observed concerning behavior or ideation recently. They decline voluntary extens ion/admission at this time and must be discharged in good jt, as Im unable to make a case for holding the patient against their will. They may have historical risk factors of admissions and other interactions with psychiatry however, those are not modifiable from a clinical perspective. The patient will need to be discharged in good jt. Mental Status Examination General: Well dressed with good hygiene Speech: Spontaneous and fluid Thought processes: Linear and logical MSK: Smooth and coordinated gait, no signs of tremors or involuntary orofacial movements Thought content: Future orientated Abstract reasoning, and computation: Intact Description of associations: Intact Description of abnormal or psychotic thoughts: Denies any suicidal or homicidal ideation. Denies any auditory or visual hallucinations. Does not appear to be responding to internal stimuli. Does not appear to be endorsing any bizarre or paranoid ideation. Judgment: Chronically limited Insight: Chronically limited Orientation: Alert and orientated 3 Cognition: Grossly normal Recent and remote memory: Intact Attention span and concentration: Intact Fund of knowledge: Adequate Mood: "okay" Affect: Euthymic with a full range Follow Up The social work team worked during the predischarge meeting in order to evaluate for further issues of lethality address them fully before discharge. They worked on safety planning with the patient's family members in order to ensure that the patient will have a safe and effective discharge. Time Spent The amount of time spent in the coordination of care for this patient was approximately 40 minutes. Wednesday Vital Signs/I&Os Vital Signs Date Time Temp Pulse Resp B/P (MAP) Pulse Ox O2 Delivery O2 Flow Rate FiO2 09/29/19 08:44 58 09/29/19 08:43 135/64 09/29/19 06:24 97.9 16 09/28/19 08:32 Room Air 09/25/19 16:44 99 Laboratory Data Labs 24H Laboratory Tests 2 09/28/19 16:54: Bedside Glucose (Misc Panel) 164H 09/29/19 06:24: Bedside Glucose (Misc Panel) 89 09/29/19 06:27: 09/29/19 06:34: Hepatitis B Surface Antigen NEGATIVE, Hepatitis B Surface Antibody POSITIVE, Hepatitis C Antibody Index 0.0 Medications Scheduled Amlodipine Besylate (Amlodipine Besylate) 10 Mg Tablet, 10 MG PO DAILY, (Reported) Atazanavir Sulfate (Reyataz) 300 Mg Capsule, 300 MG PO DAILY, (Reported) Atenolol (Atenolol) 100 Mg Tablet, 100 MG PO DAILY, (Reported) Lamivudine/Zidovudine (Lamivudine-Zidovudine Tablet) 1 Each Tablet, 1 TAB PO BID, (Reported) Multivit-Minerals/FA/Lycopene (One Daily Men's Health Tablet) 1 Each Tablet, 1 TAB PO DAILY, (Reported) Ritonavir (Norvir) 100 Mg Tablet, 100 MG PO DAILY, (Reported) Sertraline HCl (Sertraline HCl) 50 Mg Tablet, 50 MG PO DAILY for mood for 7 Days, #7 Scheduled PRN Metformin HCl (Metformin HCl) 1,000 Mg Tablet, 500 MG PO DAILY PRN for high blood sugar, (Reported) PT TAKES PRN IF BS OVER 150 Allergies Coded Allergies: tramadol (Verified Allergy, Intermediate, Hives, 08/29/19) trazodone (Verified Adverse Reaction, Severe, Priaprism, 08/29/19) LAKSHMI PERRIN DO Sep 29, 2019 11:53
[2019-09-29] MEDS ORDERED: SERT50TA29 PO (12:10)
[2019-09-30 14:11] LABS: %CD4 Pos Lymphs 17.8 % (30.8-58.5); ABS Eosinophils 0.1 x10E3/uL (0.0-0.4); ABS Lymphs 2.5 x10E3/uL (0.7-3.1); ABS Monocytes 0.4 x10E3/uL (0.1-0.9); ABS Neutophils 2.4 x10E3/uL (1.4-7.0); Abs CD4 Helper 445 /uL (359-1519); Abs CD8 Suppres 1675 /uL (109-897); CD4/CD8 Ratio 0.27 (0.92-3.72); Eosinophils 2 % (Not Estab.); HCT 37.8 % (37.5-51.0); HEPATITIS A IgG TOTAL Positive (Negative); HEPATITIS B CORE ANTIBODY IGG Negative (Negative); HGB 13.4 g/dL (13.0-17.7); Immature Grans 1 % (Not Estab.); Lymphocytes 45 % (Not Estab.); MCH 39.3 pg (26.6-33.0); MCHC 35.4 g/dL (31.5-35.7); MCV 111 fL (79-97); Monocytes 8 % (Not Estab.); Neutrophils 43 % (Not Estab.); Platelets 159 x10E3/uL (150-450); RBC 3.41 x10E6/uL (4.14-5.80); RDW 14.1 % (11.6-15.4); WBC 5.4 x10E3/uL (3.4-10.8)
== END 2019-09-29 13:35 | disposition home or self-care (01) | DRG 881 ==
LOC: M ED 12:27 → M ED INP 16:48 → M PSY 17:51
PROVIDERS: ADMIT Psychiatry & Neurology Psychiatry; ATTEND Psychiatry & Neurology Addiction Medicine
DX: F32.9 Major depressive disorder, single episode, unspecified (principal); I63.59 Cerebral infarction due to unspecified occlusion or stenosis of other cerebral artery; B20 Human immunodeficiency virus [HIV] disease; M87.019 Idiopathic aseptic necrosis of unspecified shoulder; N17.9 Acute kidney failure, unspecified; I10 Essential (primary) hypertension; Z79.899 Other long term (current) drug therapy; Z88.8 Allergy status to other drugs, medicaments and biological substances; Z87.891 Personal history of nicotine dependence; Z96.643 Presence of artificial hip joint, bilateral; Z91.5 Personal history of self-harm; I25.2 Old myocardial infarction; E11.9 Type 2 diabetes mellitus without complications; Z79.84 Long term (current) use of oral hypoglycemic drugs; Z76.5 Malingerer [conscious simulation]; E86.0 Dehydration; Z63.5 Disruption of family by separation and divorce; F10.11 Alcohol abuse, in remission; F12.11 Cannabis abuse, in remission

== ENCOUNTER 2019-09-29 15:48 | Inpatient (IN) | payer MEDICARE, MEDICAID ==
[~2019-09-29] VITALS: Ht 167.6 cm; Wt 64.1 kg
[~2019-09-29 15:48] MED LIST changes: +ATEN100T PO; +ONE1TAB2 PO; +SERT50TA29 PO; +[UNRECOGNIZED DRUG - CODE] PO
[2019-09-29 17:21] LABS: HEMATOCRIT 38.1 % (42.0-52.0); HEMOGLOBIN 13.5 g/dl (13.5-17.5); MEAN CORPUSCULAR HEMOGLOBIN 39.1 pg (27.0-33.0); MEAN CORPUSCULAR HGB CONC 35.4 g/dl (32.0-36.5); MEAN CORPUSCULAR VOLUME 110.4 fl (80.0-96.0); PLATELET COUNT, AUTOMATED 147 10^3/uL (150-450); RED BLOOD COUNT 3.45 10^6/uL (4.30-6.10)
[2019-09-29 17:55] LABS: AMPHETAMINES LEVEL URINE NEGATIVE (NEGATIVE); BARBITURATES URINE NEGATIVE (NEGATIVE); BENZODIAZEPINES URINE NEGATIVE (NEGATIVE); CANNABINOIDS URINE NEGATIVE (NEGATIVE); COCAINE METABOLITE URINE NEGATIVE (NEGATIVE); METHADONE URINE NEGATIVE (NEGATIVE); OPIATES URINE NEGATIVE (NEGATIVE); PHENCYCLIDINE URINE NEGATIVE (NEGATIVE)
[2019-09-29 18:06] LABS: ACETAMINOPHEN LEVEL < 2.0 UG/ML (10.0-30.0); ALBUMIN 3.8 GM/DL (3.2-5.2); ALT/SGPT 46 U/L (12-78); BILIRUBIN,DIRECT 0.2 MG/DL (0.0-0.2); BILIRUBIN,TOTAL 0.8 MG/DL (0.2-1.0); BLOOD UREA NITROGEN 17 MG/DL (7-18); CALCIUM LEVEL 8.9 MG/DL (8.5-10.1); CARBON DIOXIDE LEVEL 31 MEQ/L (21-32); CHLORIDE LEVEL 107 MEQ/L (98-107); CREATININE FOR GFR 1.17 MG/DL (0.70-1.30); ETHYL ALCOHOL (ETHANOL) 0.006 % (0.000-0.010); GLOMERULAR FILTRATION RATE > 60.0 (>56); GLUCOSE, FASTING 105 MG/DL (70-100); SALICYLATE LEVEL < 1.7 MG/DL (5.0-30.0); SODIUM LEVEL 141 MEQ/L (136-145); TOTAL PROTEIN 7.3 GM/DL (6.4-8.2)
[2019-09-29] MEDS ORDERED: traZODone 50 MG TAB PO PRN (19:00)
[2019-09-29] MEDS ORDERED: MAALOX 30 ML SUSP *UDC PO PRN (19:00)
[2019-09-29] MEDS ORDERED: ACETAMINOPHEN TAB 650MG DOSE (2X325MG) PO PRN (19:00)
[2019-09-29] MEDS ORDERED: hydrOXYzine 25 MG TAB PO PRN (19:00)
[2019-09-29] MEDS ORDERED: metFORMIN (GLUCOPHAGE) 1000 MG TABLET PO PRN (19:00)
[2019-09-29] MEDS ORDERED: MOM 30ML SUSPENSION UDC PO PRN (19:00)
[2019-09-29 20:33] VITALS: BP 130/60
[2019-09-29] MEDS ORDERED: DEXTROSE 50% 50 ML SYRINGE IV PRN (21:00)
[2019-09-29] MEDS ORDERED: GLUCOSE 4 GM CHEW TABLET PO PRN (21:00)
[2019-09-29] MEDS ORDERED: GLUCAGON FOR INJ 1 MG VIAL (J1610) SC PRN (21:00)
[2019-09-29] MEDS ORDERED: HumaLOG INSULIN (NovoLOG) PER UNIT SC SCH (21:00)
[2019-09-29] MEDS: LAMIVUDINE PO SCH (21:23)
[2019-09-29] MEDS: ZIDOVUDINE PO SCH (21:23)
[2019-09-30 06:12] VITALS: BP 144/74
[2019-09-30] MEDS: HumaLOG INSULIN (NovoLOG) PER UNIT SC SCH ×2 (06:34→11:47)
[2019-09-30] MEDS ORDERED: metFORMIN (GLUCOPHAGE) 500 MG TAB PO SCH (08:00)
[2019-09-30] MEDS: LAMIVUDINE PO SCH (08:37)
[2019-09-30] MEDS: ZIDOVUDINE PO SCH (08:37)
[2019-09-30] MEDS ORDERED: atenoloL 50 MG TAB PO SCH (09:00)
[2019-09-30] MEDS ORDERED: ATAZANAVIR 300 MG PO SCH (09:00)
[2019-09-30] MEDS ORDERED: RITONAVIR 100 MG PO SCH (09:00)
[2019-09-30] MEDS ORDERED: SERTRALINE HCL 50 MG TAB PO SCH (09:00)
[2019-09-30] MEDS ORDERED: amLODIPine 10 MG TAB PO SCH (09:00)
[2019-09-30 09:06] VITALS: BP 147/74
--- NOTE | 2019-09-30 10:45 | HPEPDOC ---
[facility] Medical History & Physical Date of Admission Sep 29, 2019 Date of Service: Sep 30, 2019 History and Physical CHIEF COMPLAINT: Suicidal ideation HISTORY OF PRESENT ILLNESS: Patient is 54 year old male with PMH Depression, HTN, HIV, DM presents to [facility] with concerns for "having bad thoughts." He reported being depressed and had thoughts of hurting himself. He was recently admitted to [facility] and was just discharged yesterday but came back again. He denies any physical complaints apart from just having harmful thoughts. Denies any chest pain, SOB, fever, chills, nausea, vomiting. He denies any active suicidal ideation at this time however. PAST MEDICAL HISTORY: Refer to [facility] PAST SURGICAL HISTORY: b/l hip surgery SOCIAL HISTORY: Denies current tobacco, alcohol or illicit drug use. History of marijuana use. FAMILY HISTORY: Both parents has HTN ALLERGIES: Please see below. REVIEW OF SYSTEMS: 10 point review of system negative except as stated in [facility] HOME MEDICATIONS: Please see below. PHYSICAL EXAMINATION: General: No acute distress, Alert Eyes: Normal sclera, EOMI HENT: Atraumatic Cardiovascular: Normal rate, normal rhythm. Pulmonary: Clear to auscultation b/l, no wheezing GI: Soft, nontender, nondistended Skin: Warm and dry Neuro: CN grossly intact. No focal deficits. Strengths equal b/l. Psych: oriented x 3 LABORATORY DATA: See below. IMAGING: None MICROBIOLOGY: Please see below. ASSESSMENT AND PLAN: 1. Depression with suicidal ideation - evaluation and treat per psych. 2. DM - c/w metformin. BS seems to be fairly well control, unsure if patient really needs ISS. - will resume daily metformin. Likely can stop ISS if BS are not persistently elevated. 3. HTN - BP controlled. c/w home regimen. Norvasc and atenolol. 4. HIV - c/w home ART. - Follow w/ ID post discharge. Patient medically stable. Will sign off, please call back with any questions or concerns. Vital Signs Vital Signs Date Time Temp Pulse Resp B/P (MAP) Pulse Ox O2 Delivery O2 Flow Rate FiO2 09/30/19 09:06 60 147/74 09/30/19 06:12 98.1 18 09/29/19 20:33 99 Room Air Laboratory Data Labs 24H Laboratory Tests 2 09/29/19 17:11: Nucleated Red Blood Cells % (auto) 0.3H, Anion Gap 3L, Glomerular Filtration Rate > 60.0, Calcium Level 8.9, Total Bilirubin 0.8, Direct Bilirubin 0.2, Aspartate Amino Transf (AST/SGOT) 35, Alanine Aminotransferase (ALT/SGPT) 46, Alkaline Phosphatase 93, Total Protein 7.3, Albumin 3.8, Albumin/Globulin Ratio 1.09, Thyroid Stimulating Hormone (TSH) 2.020, Salicylates Level < 1.7L, Urine Opiates Screen NEGATIVE, Urine Methadone Screen NEGATIVE, Acetaminophen Level < 2.0L, Urine Barbiturates Screen NEGATIVE, Urine Phencyclidine Screen NEGATIVE, Urine Amphetamines Screen NEGATIVE, Urine Benzodiazepines Screen NEGATIVE, Urine Cocaine Metabolite Screen NEGATIVE, Urine Cannabinoids Screen NEGATIVE, Ethyl Alcohol Level 0.006 09/29/19 21:28: Bedside Glucose (Misc Panel) 109H 09/30/19 06:12: Bedside Glucose (Misc Panel) 93 CBC/BMP Laboratory Tests 09/29/19 17:11 Home Medications Scheduled Amlodipine Besylate (Amlodipine Besylate) 10 Mg Tablet, 10 MG PO DAILY Atazanavir Sulfate (Reyataz) 300 Mg Capsule, 300 MG PO DAILY Atenolol (Atenolol) 100 Mg Tablet, 100 MG PO DAILY Lamivudine/Zidovudine (Lamivudine-Zidovudine Tablet) 1 Each Tablet, 1 TAB PO BID Multivit-Minerals/FA/Lycopene (One Daily Men's Health Tablet) 1 Each Tablet, 1 TAB PO DAILY Ritonavir (Norvir) 100 Mg Tablet, 100 MG PO DAILY Sertraline HCl (Sertraline HCl) 50 Mg Tablet, 50 MG PO DAILY for mood Scheduled PRN Metformin HCl (Metformin HCl) 1,000 Mg Tablet, 500 MG PO DAILY PRN for high blood sugar PT TAKES PRN IF BS OVER 150 Allergies Coded Allergies: tramadol (Verified Allergy, Intermediate, Hives, 08/29/19) trazodone (Verified Adverse Reaction, Severe, Priaprism, 08/29/19) A-FIB/CHADSVASC A-FIB History Current/History of A-Fib/PAF?: No DOMINGO NAPIER MD Sep 30, 2019 10:45
--- NOTE | 2019-09-30 12:29 | MHDSPDOC ---
[facility] Discharge Summary Discharge Summary DATE OF ADMISSION: Sep 29, 2019 at 18:53 DATE OF DISCHARGE: 09/30/19 please see h/p for same day d/c Vital Signs/I&Os Vital Signs Date Time Temp Pulse Resp B/P (MAP) Pulse Ox O2 Delivery O2 Flow Rate FiO2 09/30/19 09:06 60 147/74 09/30/19 06:12 98.1 18 09/29/19 20:33 99 Room Air Laboratory Data Labs 24H Laboratory Tests 2 09/29/19 17:11: Nucleated Red Blood Cells % (auto) 0.3H, Anion Gap 3L, Glomerular Filtration Rate > 60.0, Calcium Level 8.9, Total Bilirubin 0.8, Direct Bilirubin 0.2, As partate Amino Transf (AST/SGOT) 35, Alanine Aminotransferase (ALT/SGPT) 46, Alkaline Phosphatase 93, Total Protein 7.3, Albumin 3.8, Albumin/Globulin Ratio 1.09, Thyroid Stimulating Hormone (TSH) 2.020, Salicylates Level < 1.7L, Urine Opiates Screen NEGATIVE, Urine Methadone Screen NEGATIVE, Acetaminophen Level < 2.0L, Urine Barbiturates Screen NEGATIVE, Urine Phencyclidine Screen NEGATIVE, Urine Amphetamines Screen NEGATIVE, Urine Benzodiazepines Screen NEGATIVE, Urine Cocaine Metabolite Screen NEGATIVE, Urine Cannabinoids Screen NEGATIVE, Ethyl Alcohol Level 0.006 09/29/19 21:28: Bedside Glucose (Misc Panel) 109H 09/30/19 06:12: Bedside Glucose (Misc Panel) 93 09/30/19 11:41: Bedside Glucose (Misc Panel) 97 CBC/BMP Laboratory Tests 09/29/19 17:11 Medications Scheduled Amlodipine Besylate (Amlodipine Besylate) 10 Mg Tablet, 10 MG PO DAILY, (Reported) Atazanavir Sulfate (Reyataz) 300 Mg Capsule, 300 MG PO DAILY, (Reported) Atenolol (Atenolol) 100 Mg Tablet, 100 MG PO DAILY, (Reported) Lamivudine/Zidovudine (Lamivudine-Zidovudine Tablet) 1 Each Tablet, 1 TAB PO BID, (Reported) Multivit-Minerals/FA/Lycopene (One Daily Men's Health Tablet) 1 Each Tablet, 1 TAB PO DAILY, (Reported) Ritonavir (Norvir) 100 Mg Tablet, 100 MG PO DAILY, (Reported) Sertraline HCl (Sertraline HCl) 50 Mg Tablet, 50 MG PO DAILY for mood for 7 Days, #7 Scheduled PRN Metformin HCl (Metformin HCl) 1,000 Mg Tablet, 500 MG PO DAILY PRN for high blood sugar, (Reported) PT TAKES PRN IF BS OVER 150 Allergies Coded Allergies: tramadol (Verified Allergy, Intermediate, Hives, 08/29/19) trazodone (Verified Adverse Reaction, Severe, Priaprism, 08/29/19) LAKSHMI PERRIN DO Sep 30, 2019 12:29
--- NOTE | 2019-09-30 12:29 | MHHPEPDOC ---
[facility] History & Physical History and Physical DATE OF ADMISSION: Sep 29, 2019 at 18:53 Stas Dominguez New Patient Stas Dominguez Select Gender MRN: N/A Date of : MM/DD/YYYY Date of Service: 09/30/2019 Chief Complaint "I didn't like that hotel much." History of Present Illness The patient, a 54-year-old man re-presents to the hospital the same day after he was discharged. He reported that he wanted to be readmitted as he did not like the accommodations provided for him by [facility]. The patient reported suicidal ideation and had been admitted out of an abundance of caution. When the patient arrived back to the unit, he suddenly wanted discharge as he had gotten into contact with his girlfriend who offered to house him. He suddenly demonstrated that his suicidal ideation had resolved, reporting that he wanted to leave. He reported no changes in his symptoms from his discharge and all, but confirmed that he was primarily here for housing. Psychosocial information extracted from previous H&P and updated as appropriate. Review Of Systems Depression: No changes. Anxiety: No changes. Socorro: No changes. Psychotic: No changes. Trauma: No changes. Borderline: No changes. Past Psychiatric History The patient has one prior admission several hours ago, no current psychiatrist, no history of suicide attempt confirmed, reports suicide attempts in the 80s, no documentation available. Allergies Please see below. Family Psychiatric History The patient denies/is unaware any history of mental health history including addictions and suicide. 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 Substance Abuse History The patient reports use of tobacco, cannabis and significant alcohol use since age of 11, but has stopped all the substances as of 8 months ago. Medical History Patient has a history of type 2 diabetes, hypertension and HIV, currently on treatment. Mental Status Examination General: Well dressed with good hygiene Speech: Spontaneous and fluid Thought processes: Linear and logical MSK: Smooth and coordinated gait, no signs of tremors or involuntary orofacial m ovements Thought content: Future orientated Abstract reasoning, and computation: Intact Description of associations: Intact Description of abnormal or psychotic thoughts: Denies any suicidal or homicidal ideation. Denies any auditory or visual hallucinations. Does not appear to be responding to internal stimuli. Does not appear to be endorsing any bizarre or paranoid ideation. Judgment: Chronically limited Insight: Chronically limited Orientation: Alert and orientated 3 Cognition: Grossly normal Recent and remote memory: Intact Attention span and concentration: Intact Fund of knowledge: Adequate Mood: "okay" Affect: Euthymic with a full range Diagnoses Malingering. Antisocial personality disorder. Assessment and Plan The patient, a 54-year-old man with a history of HIV and likely malingering on our unit, presents again when he did not like the accommodations provided to him, suddenly once his accommodations are improved by getting in contact with his girlfriend who he met in [facility] several days ago, he wishes to be discharged and suddenly denies any suicidal or homicidal ideation. The patient definitely has antisocial traits and most likely antisocial personality disorder with a parasitic lifestyle, manipulation and disregard for the rights of others. He does not meet involuntary criteria as he is denying suicidal and homicidal ideation, has returned to baseline mental status, has all but confirmed his motivations and intentions that produced this presentation and currently is at baseline level of risk. He declines further voluntary and is discharged in good jt. Disposition Same-day discharge. Problem List 1. Ineffective coping. Initial Treatment Plan 1. Patient was admitted on a 9.13 legal status. 2. Complete history was obtained. 3. With patients permission, family will be contacted and database will be expanded. 4. Patients medication regimen will be reviewed and changed accordingly. 5. Patient will be provided with protected environment. 6. Patient will be treated with individual, group, and milieu therapies. 7. Patient will receive supportive psych-education. 8. Discharge planning will commence immediately. 9. Outpatient follow-up treatment will be strongly recommended. 10. The initial treatment plan will focus initially on: Estimated Length Of Stay 1 day. Time Spent 70 minutes. Vital Signs Vital Signs Date Time Temp Pulse Resp B/P (MAP) Pulse Ox O2 Delivery O2 Flow Rate FiO2 09/30/19 09:06 60 147/74 09/30/19 06:12 98.1 18 09/29/19 20:33 99 Room Air Laboratory Data 24H Labs Laboratory Tests 2 09/29/19 17:11: Nucleated Red Blood Cells % (auto) 0.3H, Anion Gap 3L, Glomerular Filtration Rate > 60.0, Calcium Level 8.9, Total Bilirubin 0.8, Direct Bilirubin 0.2, Aspartate Amino Transf (AST/SGOT) 35, Alanine Aminotransferase (ALT/SGPT) 46, Alkaline Phosphatase 93, Total Protein 7.3, Albumin 3.8, Albumin/Globulin Ratio 1.09, Thyroid Stimulating Hormone (TSH) 2.020, Salicylates Level < 1.7L, Urine Opiates Screen NEGATIVE, Urine Methadone Screen NEGATIVE, Acetaminophen Level < 2.0L, Urine Barbiturates Screen NEGATIVE, Urine Phencyclidine Screen NEGATIVE, Urine Amphetamines Screen NEGATIVE, Urine Benzodiazepines Screen NEGATIVE, Urine Cocaine Metabolite Screen NEGATIVE, Urine Cannabinoids Screen NEGATIVE, Ethyl Alcohol Level 0.006 09/29/19 21:28: Bedside Glucose (Misc Panel) 109H 09/30/19 06:12: Bedside Glucose (Misc Panel) 93 09/30/19 11:41: Bedside Glucose (Misc Panel) 97 CBC/BMP Laboratory Tests 09/29/19 17:11 FSBS Laboratory Tests Test 09/29/19 21:28 09/30/19 06:12 09/30/19 11:41 Range/Units Bedside Glucose (Misc Panel) 109 93 97 70-105 MG/DL Medications Scheduled Amlodipine Besylate (Amlodipine Besylate) 10 Mg Tablet, 10 MG PO DAILY, (Reported) Atazanavir Sulfate (Reyataz) 300 Mg Capsule, 300 MG PO DAILY, (Reported) Atenolol (Atenolol) 100 Mg Tablet, 100 MG PO DAILY, (Reported) Lamivudine/Zidovudine (Lamivudine-Zidovudine Tablet) 1 Each Tablet, 1 TAB PO BID , (Reported) Multivit-Minerals/FA/Lycopene (One Daily Men's Health Tablet) 1 Each Tablet, 1 TAB PO DAILY, (Reported) Ritonavir (Norvir) 100 Mg Tablet, 100 MG PO DAILY, (Reported) Sertraline HCl (Sertraline HCl) 50 Mg Tablet, 50 MG PO DAILY for mood Scheduled PRN Metformin HCl (Metformin HCl) 1,000 Mg Tablet, 500 MG PO DAILY PRN for high blood sugar, (Reported) PT TAKES PRN IF BS OVER 150 Allergies Coded Allergies: tramadol (Verified Allergy, Intermediate, Hives, 08/29/19) trazodone (Verified Adverse Reaction, Severe, Priaprism, 08/29/19) LAKSHMI PERRIN DO Sep 30, 2019 12:29
== END 2019-09-30 16:30 | disposition home or self-care (01) | DRG 881 ==
LOC: M ED 15:48 → M ED INP 18:53 → M PSY 20:10
PROVIDERS: ADMIT Psychiatry & Neurology Addiction Medicine; ATTEND Psychiatry & Neurology Addiction Medicine
DX: F32.9 Major depressive disorder, single episode, unspecified (principal); B20 Human immunodeficiency virus [HIV] disease; Z76.5 Malingerer [conscious simulation]; I10 Essential (primary) hypertension; E11.9 Type 2 diabetes mellitus without complications; Z79.84 Long term (current) use of oral hypoglycemic drugs; Z79.899 Other long term (current) drug therapy; Z88.8 Allergy status to other drugs, medicaments and biological substances; F60.2 Antisocial personality disorder

== ENCOUNTER 2019-10-04 23:24 | Inpatient (IN) | payer MEDICARE, MEDICAID ==
[~2019-10-04] VITALS: Ht 167.6 cm; Wt 69.5 kg
[2019-10-05 00:46] LABS: HEMATOCRIT 40.4 % (42.0-52.0); HEMOGLOBIN 14.1 g/dl (13.5-17.5); MEAN CORPUSCULAR HEMOGLOBIN 38.8 pg (27.0-33.0); MEAN CORPUSCULAR HGB CONC 34.9 g/dl (32.0-36.5); MEAN CORPUSCULAR VOLUME 111.3 fl (80.0-96.0); PLATELET COUNT, AUTOMATED 145 10^3/uL (150-450); RED BLOOD COUNT 3.63 10^6/uL (4.30-6.10); WHITE BLOOD COUNT 6.8 10^3/uL (4.0-10.0)
[2019-10-05 01:11] LABS: AMPHETAMINES LEVEL URINE NEGATIVE (NEGATIVE); BARBITURATES URINE NEGATIVE (NEGATIVE); BENZODIAZEPINES URINE NEGATIVE (NEGATIVE); CANNABINOIDS URINE NEGATIVE (NEGATIVE); COCAINE METABOLITE URINE NEGATIVE (NEGATIVE); METHADONE URINE NEGATIVE (NEGATIVE); OPIATES URINE NEGATIVE (NEGATIVE); PHENCYCLIDINE URINE NEGATIVE (NEGATIVE)
[2019-10-05 01:20] LABS: ALT/SGPT 48 U/L (12-78); BILIRUBIN,DIRECT 0.1 MG/DL (0.0-0.2); BILIRUBIN,TOTAL 0.2 MG/DL (0.2-1.0); BLOOD UREA NITROGEN 12 MG/DL (7-18); CALCIUM LEVEL 9.3 MG/DL (8.5-10.1); CARBON DIOXIDE LEVEL 30 MEQ/L (21-32); CHLORIDE LEVEL 102 MEQ/L (98-107); CREATININE FOR GFR 1.09 MG/DL (0.70-1.30); ETHYL ALCOHOL (ETHANOL) 0.003 % (0.000-0.010); GLOMERULAR FILTRATION RATE > 60.0 (>56); GLUCOSE, FASTING 113 MG/DL (70-100); POTASSIUM SERUM 4.1 MEQ/L (3.5-5.1); SALICYLATE LEVEL < 1.7 MG/DL (5.0-30.0); SODIUM LEVEL 141 MEQ/L (136-145); TOTAL PROTEIN 7.8 GM/DL (6.4-8.2)
[2019-10-05 01:21] LABS: ACETAMINOPHEN LEVEL < 2.0 UG/ML (10.0-30.0)
[2019-10-05] MEDS ORDERED: ENTER DRUG NAME HERE (PATIENT'S OWN MED) PO SCH ×3 (01:45)
[2019-10-05] MEDS ORDERED: ACETAMINOPHEN TAB 650MG DOSE (2X325MG) PO PRN (01:45)
[2019-10-05] MEDS ORDERED: MAALOX 30 ML SUSP *UDC PO PRN (01:45)
[2019-10-05] MEDS ORDERED: MOM 30ML SUSPENSION UDC PO PRN (01:45)
[2019-10-05 01:58] LABS: FREE T4 1.21 NG/DL (0.76-1.46)
[2019-10-05] MEDS ORDERED: GLUCAGON FOR INJ 1 MG VIAL (J1610) SC PRN (02:00)
[2019-10-05] MEDS ORDERED: hydrOXYzine 25 MG TAB PO PRN (02:00)
[2019-10-05] MEDS ORDERED: DEXTROSE 50% 50 ML SYRINGE IV PRN (02:00)
[2019-10-05] MEDS ORDERED: GLUCOSE 4 GM CHEW TABLET PO PRN (02:00)
[2019-10-05] MEDS ORDERED: ATEN50TA2 PO (02:04)
[2019-10-05] MEDS ORDERED: SERT-141 PO (02:04)
[2019-10-05] MEDS ORDERED: MULTCHW12 PO (02:04)
[2019-10-05 02:27] VITALS: BP 159/77
[2019-10-05 06:19] VITALS: BP 144/82
[2019-10-05] MEDS: HumaLOG INSULIN (NovoLOG) PER UNIT SC SCH ×2 (07:30→12:00)
[2019-10-05] MEDS ORDERED: metFORMIN (GLUCOPHAGE) 500 MG TAB PO SCH (08:00)
[2019-10-05] MEDS ORDERED: atenoloL 50 MG TAB PO SCH (09:00)
[2019-10-05] MEDS ORDERED: SERTRALINE HCL 50 MG TAB PO SCH (09:00)
[2019-10-05] MEDS ORDERED: amLODIPine 10 MG TAB PO SCH (09:00)
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
--- NOTE | 2019-10-05 12:26 | MHDSPDOC ---
[facility] Discharge Summary Discharge Summary DATE OF ADMISSION: Oct 05, 2019 at 1:41 am DATE OF DISCHARGE: Oct 05, 2019 DISCHARGE DIAGNOSES: Malingering d/o REASON FOR ADMISSION: Patient is a 54 -year-old , male, with a history of malingering last d/c [facility] 09/30/2019 then represented to ED for psych and d/c who was voluntarily brought to ED by PD stating he "need to talk to someone" then once able to speak with [facility] staff said that he's homeless, have domestic problems with his daughter, and endorsed vague SI with plans to either get hit by a car or truck. CONSULTANTS INVOLVED: none TREATMENT AND PROGRESS ON THE UNIT : Pt was admitted to [facility], seen for psychiatric assessment and restarted on his outpatient medication zoloft 50mg daily. He was provided vistaril 25mg q4hr prn anxiety and trazodone 50mg qhs prn insomnia. Pt found his medications beneficial and tolerated them well. He did not attend groups and appeared to be Malingering (has a history of malingering). His symptoms improved with treatment. On day of discharge he d enied depression, anxiety, insomnia, SI/HI, hallucinations, delusions. He was discharged [facility] with follow-up at either [facility] or in [place] outpatient [facility].. He felt safe for discharge. DISCHARGE ASSESSMENT: Pt seen and appears to be malingering due to being homeless b/c at first he said he was ok, but the "I want to be in the ground." He did not endorse SI/HI. He is not psychotic. He is now future oriented to taking a bus to [place] since he found out that DSS can aid him with getting a ticket for the trip. He feels safe to d/c to [facility] with follow-up at either [facility] or in [place] outpatient [facility]. MENTAL STATUS EXAMINATION ON DISCHARGE: General Appearance: unkempt, disheveled, appears stated age, hospital scubs/clothing Build: average Demeanor: withdrawn Eye Contact: average Activity: average Behavior: cooperative Speech: clear, spontaneous, normal volume, reg/rate,rhythm,volume Mood: euthymic Mood ok Affect: constricted, appropriate, congruent Thought Process: logical/linear, intact Thought Content (Delusions): none reported, denies SI, HI, AVH, other (future oriented to take a bus with the aid of DSS to [place]) Thought Content (Other): none reported Thought Content (Aggressive): none reported Perception (Hallucinations): none reported Perception (Other): none reported Cognition (Impairment of): none reported Cognition(Intelligence Est.): average Oriented: Awake, Alert, Oriented times three Insight: good Judgment: Good Psychosis: Denies MEDICATIONS ON DISCHARGE: zoloft 50mg daily PLAN/FOLLOWUP ARRANGEMENTS: d/c to [facility] with follow-up at either [facility] or in [place] [facility]. The amount of time spent in the coordination of care for this patient was approximately 30 minutes. Vital Signs/I&Os Vital Signs Date Time Temp Pulse Resp B/P (MAP) Pulse Ox O2 Delivery O2 Flow Rate FiO2 10/05/19 06:19 99.0 72 18 144/82 (102) 10/04/19 23:59 100 Room Air Laboratory Data Labs 24H Laboratory Tests 2 10/05/19 00:34: Nucleated Red Blood Cells % (auto) 0.0, Urine Opiates Screen NEGATIVE, Urine Methadone Screen NEGATIVE, Urine Barbiturates Screen NEGATIVE, Urine Phencyclidine Screen NEGATIVE, Urine Amphetamines Screen NEGATIVE, Urine Benzodiazepines Screen NEGATIVE, Urine Cocaine Metabolite Screen NEGATIVE, Urine Cannabinoids Screen NEGATIVE 10/05/19 00:35: Anion Gap 9, Glomerular Filtration Rate > 60.0, Calcium Level 9.3, Total Bilirubin 0.2, Direct Bilirubin 0.1, Aspartate Amino Transf (AST/SGOT) 33, Alanine Aminotransferase (ALT/SGPT) 48, Alkaline Phosphatase 97, Total Protein 7.8, Albumin 4.0, Albumin/Globulin Ratio 1.05, Thyroid Stimulating Hormone (TSH) 10.000H, Free Thyroxine 1.21, Salicylates Level < 1.7L, Acetaminophen Level < 2.0L, Ethyl Alcohol Level 0.003 10/05/19 06:15: Bedside Glucose (Misc Panel) 75 CBC/BMP Laboratory Tests 10/05/19 00:34 10/05/19 00:35 Medications Scheduled Amlodipine Besylate (Amlodipine Besylate) 10 Mg Tablet, 10 MG PO DAILY, (Reported) Atazanavir Sulfate (Reyataz) 300 Mg Capsule, 300 MG PO DAILY, (Reported) Atenolol (Atenolol) 50 Mg Tablet, 50 MG PO DAILY, (Reported) Folic Acid/Multivit-Min/Lutein (Multi-Vitamin Gummies) 1 Each Tab.chew, 1 CHW PO DAILY, (Reported) Lamivudine/Zidovudine (Lamivudine-Zidovudine Tablet) 1 Each Tablet, 1 TAB PO BID, (Reported) Ritonavir (Norvir) 100 Mg Tablet, 100 MG PO DAILY, (Reported) Sertraline Hcl (Sertraline HCl) 50 Mg Tablet, 50 MG PO DAILY, (Reported) Scheduled PRN Metformin HCl (Metformin HCl) 1,000 Mg Tablet, 1,000 MG PO DAILY PRN for high blood sugar, (Reported) PT TAKES PRN IF BS OVER 150 Allergies Coded Allergies: tramadol (Verified Allergy, Intermediate, Hives, 08/29/19) trazodone (Verified Adverse Reaction, Severe, Priaprism, 08/29/19) MARICARMEN ABARCA DO Oct 05, 2019 12:26 pm
[2019-10-05] MEDS ORDERED: HumaLOG INSULIN (NovoLOG) PER UNIT SC SCH (21:00)
== END 2019-10-05 13:10 | disposition home or self-care (01) | DRG 951 ==
LOC: M ED 23:24 → M ED INP 10-05 01:41 → M PSY 10-05 02:13
PROVIDERS: ADMIT Psychiatry & Neurology Psychiatry; ATTEND Psychiatry & Neurology Addiction Medicine
DX: Z76.5 Malingerer [conscious simulation] (principal); B20 Human immunodeficiency virus [HIV] disease; Z59.0 Homelessness; Z79.899 Other long term (current) drug therapy; Z88.8 Allergy status to other drugs, medicaments and biological substances; I25.10 Atherosclerotic heart disease of native coronary artery without angina pectoris; E11.9 Type 2 diabetes mellitus without complications; I10 Essential (primary) hypertension; Z86.73 Personal history of transient ischemic attack (TIA), and cerebral infarction without residual deficits

== ENCOUNTER → 2019-11-20 | Outpatient (REF) | payer OTHER, MEDICAID ==
[~2019-11-20] MED LIST changes: +MULTCHW12 PO; +SERT-141 PO
[2019-11-20 17:55] LABS: BASO % 0.4 % (0.0-1.0); EOS # 0.1 10^3/uL (0.0-0.5); EOS % 0.8 % (0.0-3.0); HEMOGLOBIN 15.6 g/dl (13.5-17.5); LYMPH # 1.7 10^3/uL (1.5-5.0); LYMPH % 23.1 % (24.0-44.0); MEAN CORPUSCULAR HEMOGLOBIN 37.8 pg (27.0-33.0); MEAN CORPUSCULAR HGB CONC 33.9 g/dl (32.0-36.5); MEAN CORPUSCULAR VOLUME 111.4 fl (80.0-96.0); MONO # 0.6 10^3/uL (0.0-0.8); MONO % 7.5 % (0.0-5.0); NEUTROPHILS # 4.9 10^3/uL (1.5-8.5); NEUTROPHILS % 67.7 % (36.0-66.0); PLATELET COUNT, AUTOMATED 173 10^3/uL (150-450); RED BLOOD COUNT 4.13 10^6/uL (4.30-6.10); WHITE BLOOD COUNT 7.3 10^3/uL (4.0-10.0)
[2019-11-20 18:02] LABS: ALBUMIN 4.1 GM/DL (3.2-5.2); BILIRUBIN,TOTAL 0.3 MG/DL (0.2-1.0); CALCIUM LEVEL 9.4 MG/DL (8.5-10.1); CHOLESTEROL RISK RATIO 3.594 (<5); CREATININE FOR GFR 1.38 MG/DL (0.70-1.30); FREE T4 1.18 NG/DL (0.76-1.46); GLOMERULAR FILTRATION RATE 57.2 (>56); POTASSIUM SERUM 4.1 MEQ/L (3.5-5.1); THYROID STIMULATING HORMONE 3.21 uIU/ML (0.358-3.740)
[2019-11-20 18:10] LABS: HEMOGLOBIN A1c 6.4 %
== END ==
LOC: M LAB REF 16:45
PROVIDERS: ATTEND Nurse Practitioner Family
DX: F41.8 Other specified anxiety disorders (principal); Z13.9 Encounter for screening, unspecified; I10 Essential (primary) hypertension; E11.69 Type 2 diabetes mellitus with other specified complication; Z79.899 Other long term (current) drug therapy